=== PATIENT | male | born 1935 | race Asian ===

== ENCOUNTER 2022-06-09 18:07 | Emergency (ER) | payer OTHER ==
[2022-06-09 18:45] VITALS: BP 136/64; PULSE 64; RESP 18; TEMP 97.3; BMI 18.3
[2022-06-09 19:07] LABS: HEMATOCRIT 36.6 % (35.4-49); HEMOGLOBIN 11.9 G/dL (11.7-16.9); MCH 31.1 pg (25.7-33.7); MCHC 32.6 g/dl (32.0-35.9); MEAN CELL VOLUME 95.4 fl (80-96); MEAN PLT VOLUME 7.4 fl (7.5-11.1); PLATELET COUNT 244.9 10^3/uL (134-434); RBC 3.84 10^6/uL (4.00-5.60); RDW 14.2 % (11.9-15.9); WHITE BLOOD COUNT 5.4 10^3/uL (4.0-10.8)
[2022-06-09 19:10] LABS: ALBUMIN 2.5 g/dl (3.4-5.0); BILIRUBIN,TOTAL 0.8 mg/dl (0.2-1); CREATININE 0.8 mg/dl (0.55-1.3); TOT PROT 6.1 g/dl (6.4-8.2)
[2022-06-09 19:12] LABS: PLATELET ESTIMATE ADEQUATE
[2022-06-09] MEDS ORDERED: FUROSEMIDE 40 MG TABLET (FP) PO ONE (19:26)
[2022-06-09] MEDS ORDERED: FUROSEMIDE 40 MG TABLET (FP) ONE (19:30)
== END 2022-06-09 19:35 | disposition home or self-care (01) ==
LOC: FER 18:07
DX: R79.89 Other specified abnormal findings of blood chemistry (principal); R22.33 Localized swelling, mass and lump, upper limb, bilateral; R60.0 Localized edema
CPT/HCPCS: 36415; 80053; 83880; 85027; 93005; 99284-25